=== PATIENT | female | born 1970 | race Caucasian/White ===

== ENCOUNTER → 2017-04-28 | Day surgery (SDC) | payer MEDICAID ==
[~2017-04-28] MED LIST: LIDOCAINE 2% JELLY 5 ML TUBE ONE
== END ==
LOC: END 08:47
PROVIDERS: ATTEND Internal Medicine Gastroenterology
DX: R13.12 Dysphagia, oropharyngeal phase (principal)

== ENCOUNTER 2018-05-01 00:08 | Emergency (ER) | payer MEDICAID ==
--- NOTE | 2018-05-01 00:15 | ER Document Report ---
HPI - HPI Context: Patient is a 47-year-old female presents emergency department the chief complaint of left ankle pain. Patient states that she was walking in a dark parking lot when she stepped into a hole and twisted her ankle. She did not take anything prior to arrival. She denies any numbness or tingling distal to her ankle but has pain with range of motion, ambulation and weightbearing. She otherwise denies any other injury, to her knees, hands. She denies any head injury. - REPRODUCTIVE Reproductive: DENIES: : Past Medical History - Social History Smoking Status: Current Every Day Smoker Family History: Reviewed & Not Pertinent Pulmonary Medical History: Reports: Hx Asthma Endocrine Medical History: Reports: Hx Hypothyroidism - Immunizations Hx Diphtheria, Pertussis, Tetanus Vaccination: Yes Vertical Provider Document - CONSTITUTIONAL Agree With Documented VS: Yes Notes: PHYSICAL EXAM GENERAL: Alert, interacts well. EXTREMITIES: Patient with pain and range of motion of the left ankle. Sensation equal bilaterally. Capillary refill less than 2 seconds in bilateral lower extremity digits. No edema, tenderness on the lateral malleos and dorsalis pedis pulses 2/4 bilaterally. No cyanosis. NEUROLOGICAL: Alert and oriented x4. Normal speech. PSYCH: Normal affect, normal mood. SKIN: Warm, dry, normal turgor. No rashes or lesions noted. - INFECTION CONTROL TRAVEL OUTSIDE OF THE [place] IN LAST 30 DAYS: No Course - Re-evaluation Re-evalutation: 05/01/18 01:39 Patient is a 47-year-old female presents emergency department the chief complaint of left ankle pain after stepping in hole. Presentation is consistent with an acute ankle sprain. No evidence of a septic joint, gout flare, dislocation, or fracture on exam and imaging. Vitals wnl. At this time, I do not see an indication for labs or further imaging. Will discharge with conservative measures, return precautions, and follow-up recommendations. - Diagnostic Test Radiology reviewed: Image reviewed, Reports reviewed Discharge - Discharge Clinical Impression: Foot injury Qualifiers: Encounter type: initial encounter Laterality: left Qualified Code(s): S99.922A - Unspecified injury of left foot, initial encounter Condition: Good Disposition: HOME, SELF-CARE Instructions: Acetaminophen, Damian Wrap ([facility]), Use of Crutches ([facility]), Use of Over -The-Counter Ibuprofen ([facility]), Ice & Elevation ([facility]) Referrals: CARLOS BISHOP MD [Primary Care Provider] - Follow up in 1 week
--- NOTE | 2018-05-01 00:48 | RADIOLOGY REPORT (SQ) ---
EXAM DESCRIPTION: XR ANKLE 2 VIEWS CLINICAL HISTORY: 47 years Female, pain COMPARISON: None. Findings: Small calcaneal enthesophytes. Bones, joints, and soft tissues of the XR LEFT ANKLE 3 VIEWS appear otherwise intact. IMPRESSION: No acute findings.
[2018-05-01] MEDS ORDERED: ACETAMINOPHEN 325 MG TABLET PO ONE (00:55)
[2018-05-01] MEDS ORDERED: IBUPROFEN 800 MG TABLET PO ONE (00:55)
[2018-05-01 01:12] VITALS: BP 121/70
== END 2018-05-01 01:14 | disposition home or self-care (01) ==
LOC: ER 00:08
DX: S99.922A Unspecified injury of left foot, initial encounter (principal); M25.572 Pain in left ankle and joints of left foot; X50.0XXA Overexertion from strenuous movement or load, initial encounter; Y92.481 Parking lot as the place of occurrence of the external cause; J45.909 Unspecified asthma, uncomplicated; F17.200 Nicotine dependence, unspecified, uncomplicated
CPT/HCPCS: 99283; 73610; J3490 ×2

== ENCOUNTER 2019-01-17 02:08 | Emergency (ER) | payer MEDICAID ==
[2019-01-17] MEDS ORDERED: ACETAMINOPHEN 325 MG TABLET PO ONE (04:56)
--- NOTE | 2019-01-17 04:58 | ER Document Report ---
ED Extremity Problem, Lower - General Chief Complaint: Foot Pain Stated Complaint: TOE PAIN Time Seen by Provider: 01/17/19 04:41 Primary Care Provider: GERALDINE JIMENES DPM [ACTIVE STAFF] - 01/17/19 Notes: Patient is a 48-year-old female that comes to the emergency department for chief complaint of pain and swelling to the left great toe. She states that she had a fracture of the at the end of November (slammed it with a door), this was supposed to have healed per patient, however she was having trouble with the na il and she was referred to podiatry, she states she was seen in the office of Dr. Jimenes, she states that she had the sides of the toenail removed on both sides of the left great toe, she states that 2 days after this was performed she started having some redness to the area, she states that over the past week or so she has had increased swelling, redness, and pain. No fevers reported. She is not a diabetic. Only medication she takes are for anxiety/depression. TRAVEL OUTSIDE OF THE [place] IN LAST 30 DAYS: No - Related Data Allergies/Adverse Reactions: hydromorphone HCl [From Dilaudid] Adverse Reaction (Verified 01/10/16 19:30) morphine [Morphine] Adverse Reaction (Verified 01/10/16 19:30) Past Medical History - General Information source: Patient - Social History Smoking Status: Current Every Day Smoker Smoking Education Provided: Yes - <3min Frequency of alcohol use: None Drug Abuse: None Lives with: Family Family History: Reviewed & Not Pertinent Pulmonary Medical History: Reports: Hx Asthma Endocrine Medical History: Reports: Hx Hypothyroidism Renal/ Medical History: Denies: Hx Peritoneal Dialysis - Immunizations Hx Diphtheria, Pertussis, Tetanus Vaccination: Yes Review of Systems - Review of Systems Constitutional: No symptoms reported EENT: No symptoms reported Cardiovascular: No symptoms reported Respiratory: No symptoms reported Gastrointestinal: No symptoms reported Genitourinary: No symptoms reported Female Genitourinary: No symptoms reported Musculoskeletal: See HPI Skin: No symptoms reported Hematologic/Lymphatic: No symptoms reported Neurological/Psychological: No symptoms reported Physical Exam - Vital signs Vitals: Temp Pulse Resp BP Pulse Ox 98.3 F 87 16 112/68 97 01/17/19 02:45 01/17/19 02:45 01/17/19 02:45 01/17/19 02:45 01/17/19 02:45 - Notes Notes: GENERAL: Alert, interacts well. No acute distress. HEAD: Normocephalic, atraumatic. EYES: Pupils equal, round, and reactive to light. Extraocular movements intact. ENT: Oral mucosa moist, tongue midline. Oropharynx unremarkable. Airway patent. Nares patent, no nasal septal hematoma, TM's intact. NECK: Full range of motion. Supple. Trachea midline. LUNGS: Clear to auscultation bilaterally, no wheezes, rales, or rhonchi. No resp iratory distress. HEART: Regular rate and rhythm. No murmur ABDOMEN: Soft, non-tender. Non-distended. Bowel sounds present in all 4 quadrants. GENITOURINARY: Deferred EXTREMITIES: Left great toe with questionable swelling, there is erythema extending from the nailbed area up towards the top of the toe over the dorsal aspect. The sides of the toenail on both sides have been cut. No purulent component. Unremarkable foot exam otherwise. BACK: no cervical, thoracic, lumbar midline tenderness. No saddle anesthesia, normal distal neurovascular exam. NEUROLOGICAL: Alert and oriented x3. Normal speech. [cranial nerves II through XII grossly intact]. PSYCH: Normal affect, normal mood. SKIN: Warm, dry, normal turgor. No rashes or lesions noted. Course - Re-evaluation Re-evalutation: X-ray does show a minimally displaced fracture of the distal left great toe. There is erythema and slight swelling of the toe, no purulent component, no fever, no spreading cellulitis of the foot or leg. Patient is not a diabetic. Leukocytosis is minimal at 11 with no shift. ESR is only 24, CRP is normal. Called and spoke with Dr. Jimenes, curing room worker, he recommends patient come to the office directly this morning at 9 AM to be seen and managed. Patient is very agreeable with this, states she will be going straight there. - Vital Signs Vital signs: Temp Pulse Resp BP Pulse Ox 98.3 F 87 16 112/68 97 01/17/19 02:45 01/17/19 02:45 01/17/19 02:45 01/17/19 02:45 01/17/19 02:45 - Laboratory Result Diagrams: 01/17/19 05:53 01/17/19 05:53 Laboratory results interpreted by me: 01/17/19 05:53 WBC 11.0 H ESR 24 H Discharge - Discharge Clinical Impression: Toe pain, left Condition: Stable Disposition: HOME, SELF-CARE Additional Instructions: Your x-ray does show a fracture, your laboratory workup is reassuring. I spoke with Dr. Jimenes, he asks that you be seen in the office this morning at 9 AM. Please go there directly. Return for any concerning symptoms (fever, spreading redness, increased swelling, discolored drainage, or any other concerning symptoms). Referrals: GERALDINE JIMENES DPM [ACTIVE STAFF] - 01/17/19
--- NOTE | 2019-01-17 05:26 | RADIOLOGY REPORT (SQ) ---
EXAM DESCRIPTION: XR TOES 2 OR MORE VIEWS COMPLETED DATE/TME: 01/17/2019 04:56 CLINICAL HISTORY: 48 years, Female, swelling, pain, recent fracture COMPARISON: None. FINDINGS: Minimally displaced fracture of the first distal phalanx which extends into the IP joint. No additional fractures. No dislocation. Soft tissues are unremarkable. IMPRESSION: Minimally displaced fracture through the base of the first distal phalanx.
[2019-01-17 06:19] LABS: ABSOLUTE BASOPHILS # (AUTO) 0.1 10^3/uL (0.0-0.2); ABSOLUTE EOSINOPHILS # (AUTO) 0.5 10^3/uL (0.0-0.6); ABSOLUTE LYMPHOCYTES (AUTO) 3.2 10^3/uL (0.5-4.7); ABSOLUTE MONOCYTES (AUTO) 0.6 10^3/uL (0.1-1.4); ABSOLUTE NEUT (AUTO) 6.6 10^3/uL (1.7-8.2); BASOPHILS % (AUTO) 0.6 % (0-2); EOSINOPHILS % (AUTO) 4.8 % (0-6); HEMATOCRIT 42.4 % (36.0-47.0); HEMOGLOBIN 14.4 g/dL (12.0-15.5); LYMPHOCYTES % (AUTO) 29.4 % (13-45); MEAN CORPUSCULAR HEMOGLOBIN 30.9 pg (27.0-33.4); MEAN CORPUSCULAR HGB CONC 33.9 g/dL (32.0-36.0); MEAN CORPUSCULAR VOLUME 91 fl (80-97); MONOCYTES % (AUTO) 5.5 % (3-13); PLATELET COUNT 356 10^3/uL (150-450); RED BLOOD COUNT 4.64 10^6/uL (3.72-5.28); RED CELL DISTRIBUTION WIDTH 13.8 % (11.5-14.0); SEGMENTED NEUTROPHILS % (AUTO) 59.7 % (42-78); TOTAL CELLS COUNTED % (AUTO) 100 %
[2019-01-17 06:36] LABS: ANION GAP 7 (5-19); BLOOD UREA NITROGEN 17 mg/dL (7-20); C-REACTIVE PROTEIN 7.1 mg/L (<10.0); CALCIUM 9.4 mg/dL (8.4-10.2); CARBON DIOXIDE 27 mmol/L (22-30); CHLORIDE 107 mmol/L (98-107); GLUCOSE 90 mg/dL (75-110); POTASSIUM 4.3 mmol/L (3.6-5.0); SODIUM 141.2 mmol/L (137-145)
[2019-01-17 06:58] LABS: ERYTHROCYTE SEDIMENTATION RATE 24 mm/hr (0-20)
[2019-01-17 08:03] VITALS: BP 118/64
== END 2019-01-17 08:05 | disposition home or self-care (01) ==
LOC: ER 02:08
DX: M79.675 Pain in left toe(s) (principal); Z88.6 Allergy status to analgesic agent
CPT/HCPCS: 99283; 36415; 85025; 85652; 86140; 80048; 73660; J3490

== ENCOUNTER → 2019-04-14 | Outpatient (CLI) | payer MEDICAID ==
--- NOTE | 2019-04-14 11:54 | RADIOLOGY REPORT (SQ) ---
EXAM DESCRIPTION: KNEE RIGHT 3 VIEWS COMPLETED DATE/TIME: 04/14/2019 9:34 am REASON FOR STUDY: PAIN IN UNSPECIFIED KNEE COMPARISON: None. NUMBER OF VIEWS: Two view. TECHNIQUE: AP, lateral and sunrise view of the patella acquired of the right knee. LIMITATIONS: None. FINDINGS: BONES: No fracture. No osteophytes. No worrisome bone lesions. JOINT: No effusion. No chondrocalcinosis. OTHER: No other significant finding. IMPRESSION: NEGATIVE STUDY. NO EXPLANATION FOR PAIN. TECHNICAL DOCUMENTATION: JOB ID: [id number] Reading location - IP/workstation name: [email or web address]
== END ==
LOC: OD 09:03
PROVIDERS: ATTEND Physician Assistant
DX: M25.561 Pain in right knee (principal)

== ENCOUNTER → 2019-11-28 | Outpatient (CLI) | payer MEDICARE, MEDICAID ==
--- NOTE | 2019-11-28 10:05 | EKG REPORT ---
SEVERITY:- BORDERLINE ECG - SINUS RHYTHM PROBABLE LEFT ATRIAL ABNORMALITY : Confirmed by: Flash Zhou 28-Nov-2019 10:04:51
--- NOTE | 2019-11-28 10:06 | RADIOLOGY REPORT (SQ) ---
EXAM DESCRIPTION: CHEST PA/LATERAL COMPLETED DATE/TIME: 11/28/2019 9:50 am REASON FOR STUDY: PRE-OP COMPARISON: None. EXAM PARAMETERS: NUMBER OF VIEWS: two views TECHNIQUE: Digital Frontal and Lateral radiographic views of the chest acquired. RADIATION DOSE: NA LIMITATIONS: none FINDINGS: LUNGS AND PLEURA: No opacities, masses or pneumothorax. No pleural effusion. MEDIASTINUM AND HILAR STRUCTURES: No masses or contour abnormalities. HEART AND VASCULAR STRUCTURES: Heart normal size. No evidence for failure. BONES: No acute findings. HARDWARE: None in the chest. OTHER: No other significant finding. IMPRESSION: NO SIGNIFICANT RADIOGRAPHIC FINDING IN THE CHEST. TECHNICAL DOCUMENTATION: JOB ID: [id number] [employer]- All Rights Reserved Reading location - IP/workstation name: [email or web address]
[2019-11-28 10:17] LABS: ABSOLUTE BASOPHILS # (AUTO) 0.1 10^3/uL (0.0-0.2); ABSOLUTE EOSINOPHILS # (AUTO) 0.2 10^3/uL (0.0-0.6); ABSOLUTE LYMPHOCYTES (AUTO) 2.4 10^3/uL (0.5-4.7); ABSOLUTE MONOCYTES (AUTO) 0.6 10^3/uL (0.1-1.4); ABSOLUTE NEUT (AUTO) 4.6 10^3/uL (1.7-8.2); BASOPHILS % (AUTO) 0.8 % (0-2); EOSINOPHILS % (AUTO) 3.1 % (0-6); HEMATOCRIT 43.5 % (36.0-47.0); LYMPHOCYTES % (AUTO) 30.4 % (13-45); MEAN CORPUSCULAR HEMOGLOBIN 31.3 pg (27.0-33.4); MEAN CORPUSCULAR HGB CONC 34.4 g/dL (32.0-36.0); MEAN CORPUSCULAR VOLUME 91 fl (80-97); MONOCYTES % (AUTO) 7.3 % (3-13); PLATELET COUNT 361 10^3/uL (150-450); RED BLOOD COUNT 4.78 10^6/uL (3.72-5.28); SEGMENTED NEUTROPHILS % (AUTO) 58.4 % (42-78); TOTAL CELLS COUNTED % (AUTO) 100 %; WHITE BLOOD COUNT 7.8 10^3/uL (4.0-10.5)
[2019-11-28 10:20] LABS: APPEARANCE,URINE SLIGHTLY-CLOUDY; BILIRUBIN,URINE NEGATIVE (NEGATIVE); COLOR,URINE YELLOW; GLUCOSE, URINE NEGATIVE (NEGATIVE); KETONES,URINE NEGATIVE (NEGATIVE); LEUKOCYTE ESTERASE,URINE NEGATIVE (NEGATIVE); NITRITE,URINE NEGATIVE (NEGATIVE); PROTEIN,URINE NEGATIVE (NEGATIVE); URINE SPECIFIC GRAVITY 1.005; UROBILINOGEN,URINE NEGATIVE mg/dL (<2.0)
[2019-11-28 10:48] LABS: ANION GAP 12 (5-19); BLOOD UREA NITROGEN 7 mg/dL (7-20); CALCIUM 9.8 mg/dL (8.4-10.2); CARBON DIOXIDE 24 mmol/L (22-30); CHLORIDE 103 mmol/L (98-107); GLUCOSE 87 mg/dL (75-110); POTASSIUM 4.1 mmol/L (3.6-5.0)
== END ==
LOC: OD 09:21
PROVIDERS: ATTEND Orthopaedic Surgery
DX: Z01.810 Encounter for preprocedural cardiovascular examination (principal); Z01.811 Encounter for preprocedural respiratory examination; Z01.812 Encounter for preprocedural laboratory examination
CPT/HCPCS: 36415; 71046; 80048; 81001; 85025; 93005; 93010

== ENCOUNTER 2019-12-19 06:37 | Day surgery (SDC) | payer MEDICARE, MEDICAID ==
[~2019-12-19 06:37] MED LIST changes: +BUPIVACAINE INJ/PF LIPOSOME/PF 266 MG/20 ML SDV INJ PRN; +CEFAZOLIN INJ 1 GM VIAL IV PRN; +IBUPROFEN 800 MG in NORMAL SALINE 250 ML IV PRN; +LACTATED RINGERS 1000 ML IV PRN; +LIDOCAINE 0.5% INJ-PF (5 MG/ML) 50 ML SDV SUBCUT PRN; -LIDOCAINE 2% JELLY 5 ML TUBE ONE; +OXYCODONE HCL SR 10 MG TABLET PO PRN; +PANTOPRAZOLE SODIUM 20 MG TABLET.DR PO PRN; +VANCOMYCIN HCL 1,000 MG in DEXTROSE 5%-WATER 250 ML IV PRN
[2019-12-19] MEDS ORDERED: CEFAZOLIN 1 GM/D5W RTU 1 GM/50 ML RTUPB IV ONE (07:07)
[2019-12-19] MEDS ORDERED: OXYCODONE HCL SR 10 MG TABLET PO ONE (07:07)
[2019-12-19] MEDS ORDERED: PANTOPRAZOLE SODIUM 20 MG TABLET.DR PO ONE (07:07)
[2019-12-19] MEDS ORDERED: BUPIVACAINE INJ/PF LIPOSOME/PF 266 MG/20 ML SDV ONE (07:58)
[2019-12-19] MEDS ORDERED: FENTANYL CITRATE INJ/PF 100 MCG/2 ML AMPUL ONE (08:08)
[2019-12-19] MEDS ORDERED: KETOROLAC TROMETHAMINE 60 MG/2 ML SDV ONE (08:08)
[2019-12-19] MEDS ORDERED: MIDAZOLAM 2 MG/2 ML INJ ONE (08:09)
[2019-12-19] MEDS ORDERED: ONDANSETRON HCL INJ/PF 4 MG/2 ML SDV ONE (08:09)
[2019-12-19] MEDS ORDERED: PROPOFOL INJ 200 MG/20 ML VIAL IV ONE (08:09)
[2019-12-19] MEDS ORDERED: DEXAMETHASONE SOD PHOSPHATE INJ 4 MG/1 ML VIAL ONE (08:09)
[2019-12-19] MEDS ORDERED: TRANEXAMIC ACID INJ/PF 1,000 MG/10 ML SDV ONE (08:10)
[2019-12-19] MEDS ORDERED: EPHEDRINE SULFATE INJ 50 MG/1 ML AMPULE ONE (08:10)
[2019-12-19] MEDS ORDERED: LIDOCAINE 0.5% INJ-PF (5 MG/ML) 50 ML SDV ONE (08:10)
[2019-12-19] MEDS ORDERED: FENTANYL CITRATE INJ/PF 100 MCG/2 ML AMPUL IV PRN ×3 (09:38)
[2019-12-19] MEDS ORDERED: DIPHENHYDRAMINE HCL 50 MG/ML VIAL IV PRN ×2 (09:38→10:03)
[2019-12-19] MEDS ORDERED: OXYCODONE-ACETAMINOPHEN 5-325 MG TABLET PO PRN ×2 (09:38)
[2019-12-19] MEDS ORDERED: PROMETHAZINE HCL INJ 25 MG/1 ML VIAL IV PRN ×2 (09:38)
[2019-12-19] MEDS ORDERED: MEPERIDINE HCL/PF INJ 25 MG/1 ML DISP.SYRIN IV PRN (09:38)
[2019-12-19] MEDS ORDERED: MORPHINE SULFATE 10 MG/ML INJ IV PRN (09:38)
[2019-12-19] MEDS ORDERED: ONDANSETRON HCL INJ/PF 4 MG/2 ML SDV IV PRN ×2 (09:38→10:03)
--- NOTE | 2019-12-19 10:02 | Operative Report ---
Operative Report DATE OF SURGERY: 12/19/19 PREOPERATIVE DIAGNOSIS: Right knee arthritis OPERATION: Right knee arthroplasty SURGEON: BRANDON FORREST ANESTHESIA: Spinal TISSUE REMOVED OR ALTERED: Bone to pathology ESTIMATED BLOOD LOSS: 75 PROCEDURE: Implants used: Femur: [place] triathlon size 4 CR uncemented femur Tibia: 4 uncemented tibia Tibial liner: 9 mm CS insert Patella: 35 mm oval patella Procedure with the patient supine on the operating table the right the limb is prepped and draped in a sterile fashion. The limb was elevated for exsanguination and the tourniquet inflated to 280 torr. A standard midline median parapatellar approach the knee is taken. Access is gained to the femoral canal through the intercondylar notch. Intramedullary alignment instrumentation used to resect 10 mm of distal femur in 5 of valgus. Sizing guide indicated a size 4 femur. Appropriate cutting jig is then used to fashion anterior posterior and chamfer cuts. A trial reduction femurs performed and this is judged to be adequate. Attention was next turned to the tibia. Using an extra medullary alignment system 9 millimeters was resected off the lateral tibial plateau. This is sized to a size 4 tibia. A trial reduction was now performed with a 4 femur and a 4 tibia using a 9 millimeters spacer. It is full extension and central patellofemoral tracking. The articular surface the patella was next resected using an oscillating saw. All trial implants were removed. The above implants are impacted into position. The tourniquet was deflated hemostasis obtained the wound is then closed in layers using interrupted Vicryl followed by katerine. A sterile compressive dressing was applied and the patient returned to recovery room in satisfactory condition.
[2019-12-19] MEDS ORDERED: MAG HYDROX/AL HYDROX/SIMETH SUSP 30 ML UDCUP PO PRN (10:03)
[2019-12-19] MEDS ORDERED: RINGERS SOLUTION,LACTATED 1,000 ML IV PRN (10:03)
[2019-12-19] MEDS ORDERED: ZOLPIDEM TARTRATE 5 MG TABLET PO PRN (10:03)
[2019-12-19] MEDS ORDERED: ONDANSETRON 4 MG TAB.RAPDIS PO PRN (10:03)
--- NOTE | 2019-12-19 11:16 | RADIOLOGY REPORT (SQ) ---
EXAM DESCRIPTION: KNEE RIGHT 2 VIEWS COMPLETED DATE/TIME: 12/19/2019 10:50 am REASON FOR STUDY: Post OP -Long Cassette in PACU [id number] PAIN IN RIGHT KNEE COMPARISON: 04/14/2019 NUMBER OF VIEWS: Two view(s). TECHNIQUE: Digital radiographic images of the right knee post-procedure. LIMITATIONS: None. FINDINGS: BONES: No worrisome or unexpected findings post-procedure. DEVICE: Total knee arthroplasty SOFT TISSUES: No worrisome findings. Expected postoperative soft tissue changes. IMPRESSION: SATISFACTORY POSTOPERATIVE RIGHT KNEE. TECHNICAL DOCUMENTATION: JOB ID: [id number] [employer]- All Rights Reserved Reading location - IP/workstation name: [email or web address]
[2019-12-19] MEDS ORDERED: TRANEXAMIC ACID INJ/PF 1,000 MG/10 ML SDV IV PRN (12:00)
[2019-12-19] MEDS: OXYCODONE HCL IR 5 MG TABLET PO PRN ×2 (13:29→19:37)
[2019-12-19] MEDS: ACETAMINOPHEN 325 MG TABLET PO PRN (15:47)
[2019-12-19] MEDS: IBUPROFEN 800 MG in NORMAL SALINE 250 ML IV SCH (17:32)
[2019-12-19] MEDS: GEMFIBROZIL 600 MG TABLET PO SCH (17:34)
[2019-12-19] MEDS: SENNOSIDES/DOCUSATE 8.6-50 MG 1 EACH TABLET PO SCH (17:34)
[2019-12-19] MEDS: PANTOPRAZOLE SODIUM 20 MG TABLET.DR PO SCH (17:35)
[2019-12-19] MEDS ORDERED: NICOTINE 21 MG/24 HR PATCH.TD24 TD ONE (19:00)
[2019-12-19] MEDS ORDERED: VANCOMYCIN HCL 1,000 MG in DEXTROSE 5%-WATER 250 ML IV ONE (22:00)
[2019-12-19] MEDS: OXYCODONE HCL SR 10 MG TABLET PO SCH (22:28)
[2019-12-20] MEDS: IBUPROFEN 800 MG in NORMAL SALINE 250 ML IV SCH ×2 (01:31→10:50)
[2019-12-20] MEDS: OXYCODONE HCL IR 5 MG TABLET PO PRN ×2 (01:31→08:23)
[2019-12-20 05:57] LABS: HEMATOCRIT 37.6 % (36.0-47.0); HEMOGLOBIN 12.8 g/dL (12.0-15.5); MEAN CORPUSCULAR HEMOGLOBIN 30.7 pg (27.0-33.4); MEAN CORPUSCULAR HGB CONC 34.1 g/dL (32.0-36.0); MEAN CORPUSCULAR VOLUME 90 fl (80-97); PLATELET COUNT 376 10^3/uL (150-450); RED BLOOD COUNT 4.17 10^6/uL (3.72-5.28); RED CELL DISTRIBUTION WIDTH 13.7 % (11.5-14.0); WHITE BLOOD COUNT 19.9 10^3/uL (4.0-10.5)
[2019-12-20 06:16] LABS: ANION GAP 10 (5-19); BLOOD UREA NITROGEN 11 mg/dL (7-20); CALCIUM 9.4 mg/dL (8.4-10.2); CARBON DIOXIDE 22 mmol/L (22-30); CHLORIDE 106 mmol/L (98-107); GLUCOSE 122 mg/dL (75-110); POTASSIUM 4.8 mmol/L (3.6-5.0)
--- NOTE | 2019-12-20 07:05 | PDOC DISCHARGE SUMMARY ---
Impression - Admit/DC Date/PCP Admission Date/Primary Care Provider: 12/19/19 06:37 CARLOS BISHOP MD Discharge Date: 12/20/19 - Discharge Diagnosis (1) Arthritis of right knee Is this a current diagnosis for this admission?: Yes - Additional Information Resuscitation Status: Full Code Discharge Diet: Regular Discharge Activity: Balance Activity w/Rest, No tub bath Referrals: BRANDON LEUNG MD [ACTIVE STAFF] - 01/03/20 9:45 am Home Medications: Brexpiprazole [Rexulti] 2 mg PO DAILY 11/22/19 Fluoxetine HCl [Prozac] 40 mg PO DAILY 11/22/19 Folic Acid 1 mg PO DAILY 11/22/19 Gemfibrozil [Lopid 600 mg Tablet] 600 mg PO BID 11/22/19 Montelukast Sodium [Singulair 10 mg Tablet] 10 mg PO DAILY 11/22/19 Omeprazole 20 mg PO BID 11/22/19 Cholecalciferol (Vitamin D3) [Vitamin D3] 2,000 unit PO DAILY 12/01/19 [place]-3 Fatty Acids/Fish Oil [Fish Oil 1,000 mg Capsule] 1,000 mg PO DAILY 12/01/19 Albuterol Sulfate [Albuterol Sulfate Hfa] 2 puff IH Q4HP PRN 12/19/19 History of Present Illiness History of Present Illness: DORIS MIRANDA is a 49 year old female Patient is a 49-year-old female with progressive right knee pain and functional disability second osteoarthritis. Patient is admitted for elective right knee a rthroplasty. Hospital Course Hospital Course: Patient is admitted through the operating room where she undergoes uncomplicated right knee arthroplasty. She was returned to the floor in satisfactory condition. She ambulates 150 feet with physical therapy on the day of surgery. She is comfortable overnight. Compressive dressing was removed from the right lower extremity on the first postoperative morning. Underlying OpSite dressing is clean dry and intact. Physical Exam Vital Signs: Temp Pulse Resp BP Pulse Ox 36.8 C 88 15 120/51 L 94 12/20/19 00:00 12/20/19 00:00 12/20/19 00:00 12/20/19 00:00 12/20/19 00:00 Intake & Output 12/19/19 12/20/19 12/21/19 06:59 06:59 06:59 Intake Total 5839 Output Total 3409 Balance 2430 Weight 101.5 kg General appearance: PRESENT: no acute distress, obese Head exam: PRESENT: normocephalic Respiratory exam: PRESENT: unlabored Cardiovascular exam: PRESENT: RRR Pulses: PRESENT: +1 pedal pulses bilateral Vascular exam: PRESENT: normal capillary refill GI/Abdominal exam: PRESENT: soft Rectal exam: PRESENT: deferred Musculoskeletal exam: PRESENT: other - Right lower extremity OpSite dressings clean dry and intact. There is minimal pedal edema. Distal neurovascular exami nation is intact. Neurological exam: PRESENT: alert, awake, oriented to person, oriented to place, oriented to time, oriented to situation. ABSENT: motor sensory deficit Psychiatric exam: PRESENT: appropriate affect, normal mood. ABSENT: homicidal ideation, suicidal ideation Skin exam: PRESENT: dry, intact, warm. ABSENT: cyanosis, rash Results Laboratory Results: WBC 19.9 10^3/uL (4.0-10.5) H 12/20/19 05:12 RBC 4.17 10^6/uL (3.72-5.28) 12/20/19 05:12 Hgb 12.8 g/dL (12.0-15.5) 12/20/19 05:12 Hct 37.6 % (36.0-47.0) 12/20/19 05:12 MCV 90 fl (80-97) 12/20/19 05:12 MCH 30.7 pg (27.0-33.4) 12/20/19 05:12 MCHC 34.1 g/dL (32.0-36.0) 12/20/19 05:12 RDW 13.7 % (11.5-14.0) 12/20/19 05:12 Plt Count 376 10^3/uL (150-450) 12/20/19 05:12 Sodium 137.6 mmol/L (137-145) 12/20/19 05:12 Potassium 4.8 mmol/L (3.6-5.0) 12/20/19 05:12 Chloride 106 mmol/L (98-107) 12/20/19 05:12 Carbon Dioxide 22 mmol/L (22-30) 12/20/19 05:12 Anion Gap 10 (5-19) 12/20/19 05:12 BUN 11 mg/dL (7-20) 12/20/19 05:12 Creatinine 0.89 mg/dL (0.52-1.25) 12/20/19 05:12 Est GFR ( Amer) > 60 (>60) 12/20/19 05:12 Est GFR (MDRD) Non-Af > 60 (>60) 12/20/19 05:12 Glucose 122 mg/dL (75-110) H 12/20/19 05:12 Calcium 9.4 mg/dL (8.4-10.2) 12/20/19 05:12 Urine HCG, Qual NEGATIVE (NEGATIVE) 12/19/19 07:00 Impressions: Knee X-Ray 12/19/19 10:05 IMPRESSION: SATISFACTORY POSTOPERATIVE RIGHT KNEE. Plan Plan of Treatment: Patient be discharged and weightbearing as tolerated basis with DME and home health services. Follow-up with Dr. Leung and [facility] for surgery in 2 weeks for staple removal. Stroke Is this a Stroke Patient?: No Stroke Pt being discharged on Anti-thrombolytic therapy?: Yes Acute Heart Failure - Is this a Heart Failure Patient?: No
[2019-12-20] MEDS: OXYCODONE HCL SR 10 MG TABLET PO SCH (09:11)
[2019-12-20] MEDS: SENNOSIDES/DOCUSATE 8.6-50 MG 1 EACH TABLET PO SCH (09:11)
[2019-12-20] MEDS: GEMFIBROZIL 600 MG TABLET PO SCH (09:11)
[2019-12-20] MEDS: PANTOPRAZOLE SODIUM 20 MG TABLET.DR PO SCH (09:12)
[2019-12-20] MEDS ORDERED: FLUOXETINE HCL 20 MG CAPSULE PO SCH (10:00)
[2019-12-20] MEDS ORDERED: ASPIRIN 81 MG TABLET, ENT COATED PO SCH (10:00)
[2019-12-20] MEDS ORDERED: (PENDING PHARMACY ID) (Brexpiprazole [Rexulti] 2 MG) PO SCH ×3 (10:00→16:00)
[2019-12-20] MEDS ORDERED: PRENATAL VITAMIN W DHA CAPSULE PO SCH (10:00)
[2019-12-20] MEDS: ACETAMINOPHEN 325 MG TABLET PO PRN (14:02)
[2019-12-20] MEDS ORDERED: INFLUENZA QUAD (6MOS+) 2019-20 VAC 0.5 ML SYR IM ONE (14:15)
[2019-12-20 14:29] VITALS: BP 109/57
== END 2019-12-20 15:02 | disposition home or self-care (01) ==
LOC: INOR 06:37 → UNDOADMIN 06:37 → OROUT 06:37 → EDSTATUS 10:00 → 4S 11:22 → INOR 11:22 → UNDODISIN 12-20 15:02 → OROUT 12-20 15:02
PROVIDERS: ATTEND Orthopaedic Surgery
DX: M17.11 Unilateral primary osteoarthritis, right knee (principal); M25.561 Pain in right knee; Z79.899 Other long term (current) drug therapy; Z79.51 Long term (current) use of inhaled steroids; Z23 Encounter for immunization; F17.210 Nicotine dependence, cigarettes, uncomplicated
CPT/HCPCS: 36415; 85027; 81025; 80048; 88305 ×2; 88311; 73560; 90686; 94799; 97530 ×2; 97110; 97116 ×2; 97163; 97166; 01402; 27447; 90471; C1776 ×2; C1713; A9270 ×16; J2250; J0690; J1100; J3490 ×4; J2405; J7060; J7050 ×3; J2704; J3370; C9290; J1741 ×3; J1885; J3010

== ENCOUNTER 2020-03-19 09:42 | Day surgery (SDC) | payer MEDICAID, MEDICARE ==
[~2020-03-19 09:42] MED LIST changes: -BUPIVACAINE INJ/PF LIPOSOME/PF 266 MG/20 ML SDV INJ PRN; -CEFAZOLIN INJ 1 GM VIAL IV PRN; -IBUPROFEN 800 MG in NORMAL SALINE 250 ML IV PRN; -LACTATED RINGERS 1000 ML IV PRN; -LIDOCAINE 0.5% INJ-PF (5 MG/ML) 50 ML SDV SUBCUT PRN; +LIDOCAINE 2% INJ-PF (20 MG/ML) 10 ML AMPUL ONE; -OXYCODONE HCL SR 10 MG TABLET PO PRN; -PANTOPRAZOLE SODIUM 20 MG TABLET.DR PO PRN; +PROPOFOL INJ 200 MG/20 ML VIAL IV ONE; -VANCOMYCIN HCL 1,000 MG in DEXTROSE 5%-WATER 250 ML IV PRN
[2020-03-19] MEDS ORDERED: ONDANSETRON HCL INJ/PF 4 MG/2 ML SDV IV PRN (11:09)
[2020-03-19] MEDS ORDERED: PROMETHAZINE HCL INJ 25 MG/1 ML VIAL IV PRN ×2 (11:09)
[2020-03-19] MEDS ORDERED: FENTANYL CITRATE INJ/PF 100 MCG/2 ML AMPUL IV PRN ×3 (11:09)
[2020-03-19] MEDS ORDERED: DIPHENHYDRAMINE HCL 50 MG/ML VIAL IV PRN (11:09)
--- NOTE | 2020-03-19 12:04 | Discharge Summary ---
Discharge Summary (SDC) - Discharge Final Diagnosis: Arthrofibrosis right knee Date of Surgery: 03/19/20 Discharge Date: 03/19/20 Condition: Good Treatment or Instructions: Activity as tolerated Prescriptions: Oxycodone HCl/Acetaminophen [Percocet 5-325 mg Tablet] 1 tab PO Q6 PRN #40 tab PRN Reason: Referrals: CARLOS BISHOP MD [Primary Care Provider] - BRANDNO FORREST MD [ACTIVE STAFF] - 03/29/20 8:30 am Discharge Diet: Regular Respiratory Treatments at Home: Deep Breathing/Coughing Report the Following to Your Physician Immediately: Shortness of Breath, Fever over 101 Degrees
--- NOTE | 2020-03-19 12:05 | Operative Report ---
Operative Report DATE OF SURGERY: 03/19/20 PREOPERATIVE DIAGNOSIS: Arthrofibrosis right knee OPERATION: Post manipulation right knee SURGEON: BRANDON FORREST ANESTHESIA: LMAC ESTIMATED BLOOD LOSS: 0 PROCEDURE: With the patient supine on an operating room gurney light sedation is administered by anesthesia. Pre-manipulation range of motion is approximately 20 degrees to 30 degrees. The knee is then manipulated. Post manipulation range of motion is 0 to 135 degrees. Patient is returned to the PACU in satisfactory condition.
[2020-03-19] MEDS: FENTANYL CITRATE INJ/PF 100 MCG/2 ML AMPUL ONE ×2 (12:12→12:20)
[2020-03-19] MEDS ORDERED: ACETAMINOPHEN 1,000 MG/100 ML RTUPB IV ONE (12:29)
[2020-03-19] MEDS ORDERED: KETOROLAC TROMETHAMINE INJ/PF 30 MG/1 ML SDV ONE (12:29)
[2020-03-19] MEDS ORDERED: BUPIVACAINE HCL 0.25 % INJ/PF (2.5 MG/1 ML) 30 ML VIAL ONE (13:48)
[2020-03-19 14:42] VITALS: BP 144/81
== END 2020-03-19 14:30 | disposition home or self-care (01) ==
LOC: OROUT 09:42
PROVIDERS: ATTEND Orthopaedic Surgery
DX: M24.661 Ankylosis, right knee (principal); Z96.669 Presence of unspecified artificial ankle joint; M25.561 Pain in right knee; F17.210 Nicotine dependence, cigarettes, uncomplicated; Z79.82 Long term (current) use of aspirin; J45.909 Unspecified asthma, uncomplicated; K21.9 Gastro-esophageal reflux disease without esophagitis; Z79.899 Other long term (current) drug therapy; E66.3 Overweight; Z68.30 Body mass index [BMI] 30.0-30.9, adult
CPT/HCPCS: 01380; 27570; J3010; J1885; J3490 ×2; J2704; J0131; 1380